=== PATIENT | female | born 1985 | race Hispanic/Latino ===

== ENCOUNTER 2022-04-27 06:22 | Inpatient (IN) | payer MEDICAID ==
[~2022-04-27] VITALS: Ht 152.4 cm; Wt 78.5 kg
[2022-04-27 07:28] LABS: APPEARANCE,URINE CLOUDY (CLEAR); BILIRUBIN,URINE NEGATIVE (NEGATIVE); COLOR,URINE LIGHT-ORANGE (YELLOW); GLUCOSE, URINE (UA) NEGATIVE (NEGATIVE); KETONES,URINE NEGATIVE (NEGATIVE); LEUKOCYTE ESTERASE ,URINE 75 Leu/uL (NEGATIVE); NITRATE,URINE NEGATIVE (NEGATIVE); OCCULT BLOOD,URINE LARGE (NEGATIVE); PH,URINE 6.5 (5.0-8.0); PROTEIN,URINE 50 mg/dL (NEGATIVE); UROBILINOGEN,URINE 0.2 mg/dL (0.2-1.0)
[2022-04-27] MEDS ORDERED: LACTATED RINGERS 1000ML 1,000 ML IV PRN (07:30)
[2022-04-27 07:36] LABS: AMPHET/METH SCREEN,URINE NEGATIVE (NEGATIVE); BARBITURATE SCREEN, URINE NEGATIVE (NEGATIVE); BENZODIAZEPINES SCREEN,URINE NEGATIVE (NEGATIVE); CANNABINOID SCREEN,URINE NEGATIVE (NEGATIVE); COCAINE SCREEN,URINE NEGATIVE (NEGATIVE); OPIATE SCREEN,URINE NEGATIVE (NEGATIVE); PHENCYCLIDINE SCREEN,URINE NEGATIVE (NEGATIVE)
[2022-04-27 07:42] LABS: HEMATOCRIT 30.8 % (36-48); MEAN CORPUSCULAR HEMOGLOBIN 25.7 pg (27.0-33.0); MEAN CORPUSCULAR HGB CONC 32.8 g/dL (32.0-36.0); MEAN CORPUSCULAR VOLUME 78.4 fL (79-99); RED BLOOD CELL COUNT(AUTO) 3.93 MIL/uL (4.00-5.50); RED CELL DISTRIBUTION WIDTH 14.2 % (11.0-15.5); WHITE BLOOD COUNT (AUTO) 12.5 K/uL (4.8-10.8)
[2022-04-27] MEDS ORDERED: AMPICILLIN 2GM+NS 100ML 100 ML IV ONE (07:43)
[2022-04-27 07:45] LABS: BACTERIA,URINE FEW /HPF (None Seen); MUCUS,URINE RARE LPF (None Seen); RBC,URINE TNTC /HPF (0-1); SQUAMOUS EPITHELIAL CELL,UR MOD /HPF (0-2)
[2022-04-27] MEDS ORDERED: AMPICILLIN 2GM+NS 100ML 100 ML IV SCH (08:00)
[2022-04-27] MEDS ORDERED: BUTORPHANOL TARTRATE 2 MG/ML ONE (08:49)
[2022-04-27] MEDS ORDERED: BUTORPHANOL TARTRATE 2 MG/ML IVP SCH (09:00)
[2022-04-27] MEDS ORDERED: OXYTOCIN-LR 20 UNITS/1000 ML 1,000 ML IV ONE (09:38)
[2022-04-27] MEDS ORDERED: LIDOCAINE HCL 1% 20 ML VIAL ONE (09:39)
[2022-04-27] MEDS ORDERED: OXYTOCIN-LR 20 UNITS/1000 ML 1,000 ML IV SCH ×3 (10:00→12:00)
[2022-04-27] MEDS ORDERED: MEASLES/MUMPS/RUBELLA VACCINE, LIVE 0.5 ML/VIAL SQ PRN (12:00)
[2022-04-27] MEDS ORDERED: LANOLIN 30GM OINTMENT TP PRN (12:00)
[2022-04-27] MEDS ORDERED: DIPH,PERTUSS(ACELL),TET VAC/PF 0.5 ML VIAL IM PRN (12:00)
[2022-04-27] MEDS ORDERED: WITCH HAZEL 1 PAD TP PRN (12:00)
[2022-04-27] MEDS ORDERED: ACETAMINOPHEN 325 MG TAB PO PRN (12:00)
[2022-04-27] MEDS ORDERED: BENZOCAINE/LANOLIN/ALOE VERA 60 ML AEROSOL TP PRN (12:00)
[2022-04-27] MEDS ORDERED: ACETAMINOPHEN WITH CODEINE 1 TAB TAB PO PRN (12:00)
[2022-04-27] MEDS: IBUPROFEN 600 MG TABLET PO PRN (12:13)
[2022-04-27 15:02] VITALS: BP 118/72
[2022-04-27 15:48] VITALS: BP 123/76
[2022-04-27 19:50] VITALS: BP 128/71
[2022-04-27] MEDS: AMPICILLIN 1GM+NS 50ML 50 ML IV SCH ×2 (20:00→21:07)
[2022-04-27] MEDS: DOCUSATE SODIUM 100 MG CAP PO SCH (20:59)
[2022-04-27 22:51] VITALS: BP 113/57
[2022-04-28 03:15] VITALS: BP 116/72
[2022-04-28 05:32] LABS: HEMATOCRIT 28.5 % (36-48); MEAN CORPUSCULAR HEMOGLOBIN 26.2 pg (27.0-33.0); MEAN CORPUSCULAR VOLUME 79.4 fL (79-99); RED BLOOD CELL COUNT(AUTO) 3.59 MIL/uL (4.00-5.50); RED CELL DISTRIBUTION WIDTH 14.6 % (11.0-15.5); WHITE BLOOD COUNT (AUTO) 15.3 K/uL (4.8-10.8)
[2022-04-28 08:00] VITALS: BP 102/65
[2022-04-28] MEDS: DOCUSATE SODIUM 100 MG CAP PO SCH (09:22)
[2022-04-28] MEDS: IBUPROFEN 600 MG TABLET PO PRN (09:23)
[2022-04-28 11:50] VITALS: BP 123/75
[2022-04-28] MEDS ORDERED: IBUP-2088 PO (15:35)
[2022-04-28 15:55] VITALS: BP 125/75
[2022-04-28] MEDS: AMPICILLIN 1GM+NS 50ML 50 ML IV SCH (16:00)
== END 2022-04-28 16:00 | disposition home or self-care (01) | DRG 560 ==
LOC: EDH 06:22 → OBSVTOIN 06:23 → LDH 06:23 → WSH 14:45
PROVIDERS: ADMIT Obstetrics & Gynecology; ATTEND Obstetrics & Gynecology
PROC: 10E0XZZ Delivery of Products of Conception, External Approach (ICD-10-PCS; principal; 2022-04-27)
PROC: 0HQ9XZZ Repair Perineum Skin, External Approach (ICD-10-PCS; 2022-04-27)
DX: O70.0 First degree perineal laceration during delivery (principal); Z37.0 Single live birth; Z3A.38 38 weeks gestation of pregnancy
CPT/HCPCS: 36415; 80305; 81001; 85027; 86592; 86850; 86900; 86901; 87088; 87340; G0378; J0290; J0595; J2590

== ENCOUNTER 2023-11-07 11:37 | Emergency (ER) | payer MEDICAID ==
[~2023-11-07] VITALS: Ht 154.9 cm; Wt 66.7 kg
[~2023-11-07 11:37] MED LIST: IBUP-2088 PO
[2023-11-07 12:31] LABS: APPEARANCE,URINE CLEAR (CLEAR); BILIRUBIN,URINE NEGATIVE (NEGATIVE); COLOR,URINE COLORLESS (YELLOW); GLUCOSE, URINE (UA) NEGATIVE (NEGATIVE); KETONES,URINE NEGATIVE (NEGATIVE); LEUKOCYTE ESTERASE ,URINE NEGATIVE Leu/uL (NEGATIVE); NITRATE,URINE NEGATIVE (NEGATIVE); OCCULT BLOOD,URINE NEGATIVE (NEGATIVE); PROTEIN,URINE NEGATIVE (NEGATIVE); UROBILINOGEN,URINE 0.2 mg/dL (0.2-1.0)
[2023-11-07 12:34] LABS: BASOPHILS # (AUTO) 0.06 K/uL (0.00-0.20); BASOPHILS % (AUTO) 0.5 % (0.0-5.0); EOSINOPHILS # (AUTO) 0.07 K/uL (0.00-0.70); EOSINOPHILS % (AUTO) 0.6 % (0.0-8.0); HEMATOCRIT 37.9 % (36-48); IMMATURE GRANULOCYTE ABSOLUTE 0.05 K/uL (0-1); LYMPHOCYTES # (AUTO) 2.3 K/uL (1.0-4.8); LYMPHOCYTES % (AUTO) 18.8 % (21.0-51.0); MEAN CORPUSCULAR HEMOGLOBIN 28.4 pg (27.0-33.0); MEAN CORPUSCULAR VOLUME 83.3 fL (79-99); NEUTROPHILS # (AUTO) 8.7 K/uL (1.8-7.7); NEUTROPHILS % (AUTO) 71.7 % (40.0-77.0); PLATELET COUNT (AUTO) 317 K/uL (130-400); RED BLOOD CELL COUNT(AUTO) 4.55 MIL/uL (4.00-5.50); RED CELL DISTRIBUTION WIDTH 12.5 % (11.0-15.5); WHITE BLOOD COUNT (AUTO) 12.2 K/uL (4.8-10.8)
[2023-11-07 12:43] LABS: ADD UA MICROSCOPIC NO
[2023-11-07 13:09] LABS: INR 1.04 (0.85-1.15); PROTHROMBIN TIME 11.2 SEC (9.6-11.6)
[2023-11-07 13:14] LABS: ALBUMIN 3.7 g/dL (3.5-5.0); BILIRUBIN,TOTAL 0.8 mg/dL (0.2-1.0); CREATININE 0.6 mg/dL (0.5-1.0)
[2023-11-07 16:55] VITALS: BP 113/56; PULSE 83; RESP 16; O2SAT 99
== END 2023-11-07 17:41 | disposition home or self-care (01) ==
LOC: EDH 11:37
DX: O03.9 Complete or unspecified spontaneous abortion without complication (principal); Z79.899 Other long term (current) drug therapy; Z3A.08 8 weeks gestation of pregnancy
CPT/HCPCS: 36415; 76801; 80053; 81003; 84702; 85025; 85610; 85730; 86850; 86900; 86901

== ENCOUNTER 2023-11-08 22:02 | Inpatient (IN) | payer MEDICAID ==
[~2023-11-08] VITALS: Ht 162.6 cm; Wt 61.2 kg
[2023-11-08 22:34] LABS: HEMATOCRIT 30.9 % (36-48); MEAN CORPUSCULAR HEMOGLOBIN 27.9 pg (27.0-33.0); MEAN CORPUSCULAR VOLUME 82.2 fL (79-99); PLATELET COUNT (AUTO) 315 K/uL (130-400); RED BLOOD CELL COUNT(AUTO) 3.76 MIL/uL (4.00-5.50); RED CELL DISTRIBUTION WIDTH 12.3 % (11.0-15.5)
[2023-11-08] MEDS: LACTATED RINGERS 1000ML 1,000 ML IV SCH ×2 (22:36→23:49)
[2023-11-08] MEDS: MORPHINE 4 MG SYG IVP ONE (22:36)
[2023-11-08 22:47] LABS: BILIRUBIN,TOTAL 0.3 mg/dL (0.2-1.0); CREATININE 0.8 mg/dL (0.5-1.0); POTASSIUM 3.1 mmol/L (3.5-5.1); TOTAL PROTEIN, SERUM 6.6 g/dL (6.0-8.3)
[2023-11-08] MEDS ORDERED: MORPHINE 2 MG SYG IM ONE (23:00)
[2023-11-08] MEDS: MORPHINE 2 MG SYG IVP ONE (23:04)
[2023-11-08 23:14] VITALS: O2SAT 100
[2023-11-08 23:46] LABS: EOSINOPHILS % (MANUAL) 1 % (1-6); LYMPHOCYTES % (MANUAL) 29 % (22-44); MAN.DIFF COMMENT-IMPRESSION MANUAL DIFFERENTIAL; MONOCYTES % (MANUAL) 4 % (2-9); SEGMENTED NEUTROPHILS % 66 % (40-70); TOTAL CELLS COUNTED 100
[2023-11-08 23:48] LABS: PLATELET MORPHOLOGY COMMENT ADEQUATE; WBC MORPHOLOGY HYPERSEGMENT NEUT 1+
[2023-11-09] VITALS (20 sets, daily range): BP systolic 82–115; BP diastolic 44–67; PULSE 77–105; RESP 14–22
[2023-11-09] MEDS: NOREPINEPHRIN 4MG/NS 250ML 250 ML IV ONE (00:17)
[2023-11-09] MEDS: LACTATED RINGERS 1000ML 1,000 ML IV SCH (00:20)
[2023-11-09] MEDS ORDERED: NOREPINEPHRIN 4MG/NS 250ML 250 ML IV SCH (00:30)
[2023-11-09] MEDS ORDERED: PROPOFOL 10 MG/ML 20ML VIAL IV ONE (00:42)
[2023-11-09] MEDS ORDERED: ROCURONIUM BROMIDE 10MG/1ML 5ML VL ONE ×2 (00:42→01:26)
[2023-11-09] MEDS ORDERED: LIDOCAINE PF 100MG/5ML (2%) SYRINGE 5ML ONE (00:42)
[2023-11-09] MEDS ORDERED: SUCCINYLCHOLINE CHLORIDE 20 MG/ML 10 ML VIAL ONE (00:42)
[2023-11-09] MEDS ORDERED: MIDAZOLAM HCL 1 MG/ML 2ML VIAL ONE (00:43)
[2023-11-09] MEDS ORDERED: KETAMINE 50MG/ML SYRINGE 50 MG/ML DISP.SYRIN ONE (00:44)
[2023-11-09] MEDS ORDERED: ETOMIDATE 20MG VIAL ONE (00:45)
[2023-11-09] MEDS ORDERED: FENTANYL CITRATE PF 50 MCG/1 ML 2ML VIAL ONE (00:52)
[2023-11-09] MEDS: CEFAZOLIN SODIUM 1 GM VIAL IVPB SCH (01:10)
[2023-11-09] MEDS ORDERED: DEXAMETHASONE SOD PHOSPHATE 4 MG/ML 1ML VIAL ONE (01:37)
[2023-11-09] MEDS ORDERED: ONDANSETRON 4MG INJ ONE (01:37)
[2023-11-09] MEDS: SUGAMMADEX SODIUM 200 MG/2 ML VIAL IV ONE (02:31)
[2023-11-09] MEDS: MEPERIDINE-PF 25 MG/ML SYG ONE ×2 (02:31→02:46)
[2023-11-09] MEDS ORDERED: MEPERIDINE-PF 50 MG/ML SYG IM PRN (05:00)
[2023-11-09] MEDS ORDERED: PROMETHAZINE HCL 25 MG/ML 1ML AMPULE IM PRN (05:00)
[2023-11-09] MEDS: DEXTROSE 5 %-0.45 % NACL 1,000 ML IV SCH (05:35)
[2023-11-09] MEDS: IBUPROFEN 600 MG TABLET PO PRN (06:42)
[2023-11-09 06:49] LABS: MEAN CORPUSCULAR HEMOGLOBIN 29.1 pg (27.0-33.0); MEAN CORPUSCULAR VOLUME 85.6 fL (79-99); RED BLOOD CELL COUNT(AUTO) 2.92 MIL/uL (4.00-5.50); RED CELL DISTRIBUTION WIDTH 12.5 % (11.0-15.5); WHITE BLOOD COUNT (AUTO) 18.2 K/uL (4.8-10.8)
[2023-11-09] MEDS: ACETAMINOPHEN WITH CODEINE 1 TAB TAB PO PRN (08:07)
[2023-11-09] MEDS: SIMETHICONE 80 MG TAB.CHEW PO PRN (10:32)
[2023-11-09 12:58] LABS: HEMATOCRIT 25.3 % (36-48)
[2023-11-10 00:20] VITALS: BP 93/43; PULSE 106; RESP 20
[2023-11-10 04:00] VITALS: BP 103/45; PULSE 99; RESP 17
[2023-11-10 07:30] VITALS: BP 93/55; PULSE 91; RESP 20
[2023-11-10 10:10] VITALS: BP 95/52; PULSE 101; RESP 18
== END 2023-11-10 10:30 | disposition home or self-care (01) | DRG 547 ==
LOC: EDH 22:02 → EDHIP 11-09 00:01 → WSH 11-09 03:43
PROVIDERS: ADMIT Obstetrics & Gynecology; ATTEND Obstetrics & Gynecology
PROC: 10D28ZZ Extraction of Products of Conception, Ectopic, Via Natural or Artificial Opening Endoscopic (ICD-10-PCS; principal; 2023-11-09 00:55)
PROC: 0UB68ZZ Excision of Left Fallopian Tube, Via Natural or Artificial Opening Endoscopic (ICD-10-PCS; 2023-11-09 00:55)
PROC: 30233N1 Transfusion of Nonautologous Red Blood Cells into Peripheral Vein, Percutaneous Approach (ICD-10-PCS; 2023-11-09 00:55)
DX: O00.90 Unspecified ectopic pregnancy without intrauterine pregnancy (principal); Z3A.00 Weeks of gestation of pregnancy not specified
CPT/HCPCS: 36415; 76801; 80053; 84702; 85014; 85018; 85025; 85027; 86850; 86900; 86901; 86922; 96374; 96375; A4351; G0378; J0330; J0690; J1100; J2001; J2175; J2250; J2270; J2405; J2704; J3010; J3490; J7120; P9016; A4315; A4600; A4649; A4930; C1769; G0168